=== PATIENT | female | born 1990 | race Caucasian/White ===

== ENCOUNTER 2016-09-29 17:39 | Emergency (ER) | payer SELFPAY ==
[2016-09-29] MEDS ORDERED: Sodium Chloride 0.9% 10 ML Syringe FLUSH PRN ×2 (18:13→18:28)
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
[2016-09-29 18:21] VITALS: BP 135/90
[2016-09-29] MEDS ORDERED: Iopamidol 612 MG/ML 150 ML Bottle IVPUSH ONE (18:28)
--- NOTE | 2016-09-30 07:43 | CT ---
CT neck Technique: Multiple axial sections were obtained from above the external auditory canals inferiorly through the lung apices. Intravenous contrast was utilized. Comparison: No previous neck exam is available. Findings: The parotid and submandibular salivary glands are within normal limits. Multiple scattered lymph nodes within the neck are seen which measure within normal limits and are felt to be incidental. No focal edema is identified. No neck mass is identified. Bone window settings were reviewed which show no discrete bony abnormality. Mild mucosal thickening is identified within both maxillary sinuses believed to be chronic. Impression: 1. Mild mucosal thickening within the maxillary sinuses which is felt to be chronic. 2. CT study of the neck is otherwise unremarkable. Nothing acute is appreciated. Diagnostic code #2 I agree with preliminary report issued by [employer] (preliminary report dictated on 09/29/16, 8:30 PM Central Time)
--- NOTE | 2016-09-30 08:22 | CT ---
CT facial bones Technique: Multiple axial sections were obtained through the facial bones. Reconstructed sagittal and coronal images were reviewed. Comparison: Previous facial bone CT exam of 12/06/14. Findings: Mucosal thickening seen within the ethmoid sinuses, sphenoid and maxillary sinuses. This appears to be chronic. No facial bone fracture is identified. Right and left globes are symmetric. Impression: 1. Mild areas of mucosal thickening as noted above felt to be due to chronic sinusitis. Findings are fairly stable from prior exam. 2. No acute bony abnormality identified on CT study of the facial bones. Diagnostic code #2 I agree with preliminary report issued by [employer] (preliminary report dictated on 09/29/16, 8:34 PM Central Time)
--- NOTE | 2016-09-30 08:22 | CT ---
CT chest Technique: Multiple axial sections were obtained from above the lung apices inferiorly through the lung bases. Intravenous contrast was utilized. Comparison: Previous chest x-ray performed on 09/23/15, no previous chest CT is available. Findings: Mediastinum and hilar regions show no adenopathy or mass. No pericardial thickening is seen. Lungs are clear. No pulmonary contusion, pleural effusion or pneumothorax is seen. Bone window settings were reviewed which show no discrete rib fracture. Thoracic spine shows no discrete fracture. Sternum appears to be intact on the reconstructed sagittal images. Impression: 1. No abnormality is identified on CT study of the chest. Diagnostic code #1 I agree with preliminary report issued by [employer] (preliminary report dictated on 09/29/16, 8:41 PM Central Time) CT abdomen and pelvis Technique: Multiple axial sections were obtained from above the dome of the diaphragm inferiorly through the pubic symphysis. Intravenous contrast was utilized. No oral contrast has been given. Comparison: No previous abdominal or pelvic imaging. Findings: Liver shows no focal parenchymal abnormality. Spleen appears within normal limits. Adrenal glands show no nodule. Pancreas appears within normal limits. Kidneys show symmetric contrast enhancement without hydronephrosis or mass. Gallbladder shows no calcified gallstones. Aorta shows no aneurysmal dilatation. No retroperitoneal adenopathy or mesenteric abnormalities are seen. No pelvic mass or adenopathy is identified. Free fluid is seen within the cul-de-sac most likely physiologic and due to adnexal cyst rupture. Appendix is seen which appears normal. No bowel dilatation is seen. Delayed images show contrast within the distal ureters and within the bladder. Bone window settings were reviewed which show no discrete lumbar spine abnormality. Impression: 1. Free fluid within the pelvis most likely physiologic representing adnexal cyst rupture. 2. No additional abnormality is seen on CT study of the abdomen and pelvis. Diagnostic code #2 I agree with preliminary report issued by [employer] (preliminary report dictated on 09/29/16, 8:41 PM Central Time)
--- NOTE | 2016-09-30 08:22 | CT ---
Head CT Technique: Multiple axial sections were obtained through the brain. Intravenous contrast was not utilized. Comparison: Previous head CT exam of 12/06/14. Findings: Ventricles along with basal cisterns and sulci over the convexities are within normal limits for the patient's age. No abnormal parenchymal densities are seen. No evidence of intracranial hemorrhage. No midline shift or mass effect is seen. Mucosal thickening seen within the ethmoid sinuses which is felt to be chronic. Mastoid sinuses and middle ear cavities are clear. No acute calvarial abnormality is identified. Impression: 1. Mucosal thickening within the ethmoid sinuses felt to represent chronic sinusitis. 2. No acute intracranial abnormality is identified. No skull fracture is identified. Diagnostic code #2 I agree with preliminary report issued by [employer] (preliminary report dictated on 09/29/16, 8:24 PM Central Time)
== END 2016-09-29 20:12 | disposition home or self-care (01) ==
LOC: JD.ED 17:39
DX: T14.8 Other injury of unspecified body region (principal); Y04.0XXA Assault by unarmed brawl or fight, initial encounter; Z88.2 Allergy status to sulfonamides; Z79.899 Other long term (current) drug therapy; I10 Essential (primary) hypertension; F32.9 Major depressive disorder, single episode, unspecified; E03.9 Hypothyroidism, unspecified; F17.200 Nicotine dependence, unspecified, uncomplicated; R51 Headache; M54.2 Cervicalgia; R07.89 Other chest pain; R10.9 Unspecified abdominal pain; M54.9 Dorsalgia, unspecified; R68.84 Jaw pain
CPT/HCPCS: 36415; 70450; 70486; 70491; 71260; 74177; 80053; 81001; 83690; 85025; 99284; G0480; J7050; Q9967

== ENCOUNTER 2017-05-07 12:18 | Emergency (ER) | payer SELFPAY ==
[2017-05-07 12:30] VITALS: BP 150/113
[2017-05-07] MEDS ORDERED: Sodium Chloride 0.9% 10 ML Syringe FLUSH PRN (12:45)
[2017-05-07] MEDS ORDERED: Dicyclomine 10 MG Cap PO ONE (12:46)
[2017-05-07] MEDS ORDERED: Ketorolac 30 MG/ML SDV IVPUSH ONE (12:46)
[2017-05-07] MEDS ORDERED: Sodium Chloride 0.9% 1,000 ML IV ONE (12:46)
--- NOTE | 2017-05-07 13:11 | EDM.PDOC ---
ED HPI GENERAL MEDICAL PROBLEM - General Chief Complaint: Abdominal Pain Stated Complaint: ABDOMINAL PAIN Time Seen by Provider: 05/07/17 12:25 Source of Information: Reports: Patient History Limitations: Reports: No Limitations - History of Present Illness INITIAL COMMENTS - FREE TEXT/NARRATIVE: 26-year-old female presents for evaluation treatment of abdominal discomfort and diarrhea. She reports she's had these symptoms for the last month. Describes the abdominal pain is involving her entire abdomen and describes as a constant pain. Reports is made worse by eating. She reports in particular spicy foods and tomatoes seem to make the abdominal pain worse. She reports she is having diarrhea, up to 10 episodes today. She's had 4 episodes today so far. She has appreciated bright red blood in her stool. No foul odor from the stools or mucus-like stools. She denies any associated fevers, nausea or vomiting. Patient reports she's never had any history of like this. She does have family history of Crohn's disease and diverticulitis. Patient reports she relocated to [place] about 2 months ago. She has just returned [place] about 2 days ago. She denies any recent antibiotic usage. Reports her last menstrual period Was about 3 weeks ago. Duration: Week(s): (4) Middle Abdominal Pain Score (Numeric/FACES): 8 - Related Data Allergies Allergy/AdvReac Type Severity Reaction Status Date / Time Sulfa (Sulfonamide Allergy Intermediate Dizziness Verified 05/07/17 12:30 Antibiotics) Home Meds: Home Meds Ferrous Sulfate [Iron] 975 mg PO DAILY 09/29/16 [History] Zolpidem Tartrate [Ambien] 5 mg PO BEDTIME 09/29/16 [History] Dicyclomine [Bentyl] 20 mg PO TID PRN #20 tab 05/07/17 [Rx] Lisinopril/Hydrochlorothiazide [Lisinopril-Hctz 20-12.5 mg Tab] 1 tab PO BID [History] Past Medical History - Past Health History Medical/Surgical History: Denies Medical/Surgical History Cardiovascular History: Reports: Hypertension 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: Neurological History: Reports: Head Trauma Psychiatric History: Reports: Anxiety Endocrine/Metabolic History: Reports: Hypothyroidism Hematologic History: Reports: Anemia - Past Surgical History Female Surgical History: Reports: Section Social & Family History - Family History Cardiac: Reports: Hypertension Neurological: Reports: CVA Endocrine/Metabolic: Reports: Diabetes, type II - Tobacco Use Smoking Status *Q: Current Every Day Smoker Years of Tobacco use: 13 Packs/Tins Daily: 0.5 Used Tobacco, but Quit: No - Caffeine Use Caffeine Use: Reports: None - Alcohol Use Days Per Week of Alcohol Use: 0 Number of Drinks Per Day: 3 Total Drinks Per Week: 0 - Recreational Drug Use Recreational Drug Use: No Drug Use in Last 12 Months: No Recreational Drug Type: Reports: Marijuana/Hashish - Living Situation & Occupation Living situation: Reports: , with Family Occupation: Employed ED ROS GENERAL - Review of Systems Review Of Systems: See Below Constitutional: Denies: Fever Cardiovascular: Denies: Chest Pain GI/Abdominal: Reports: Abdominal Pain, Bloody Stool, Diarrhea. Denies: Melena, Nausea, Vomiting : Denies: Dysuria Neurological: Reports: Headache ED EXAM, GI/ABD - Physical Exam Exam: See Below Exam Limited By: No Limitations General Appearance: Alert, WD/WN, No Apparent Distress Throat/Mouth: Normal Inspection, Normal Voice, No Airway Compromise Respiratory/Chest: No Respiratory Distress, Lungs Clear, Normal Breath Sounds Cardiovascular: Normal Peripheral Pulses, Regular Rate, Rhythm, No Murmur GI/Abdominal Exam: Normal Bowel Sounds, Soft, Non-Tender. No: Distended, Guarding, Rigid, Rebound Neurological: Alert, Oriented, Normal Cognition Psychiatric: Normal Affect, Normal Mood Skin Exam: Warm, Dry, Normal Color Course - Vital Signs Last Recorded V/S: Last Vital Signs Temp 36.5 C 05/07/17 12:23 Pulse 96 05/07/17 12:23 Resp 16 05/07/17 12:23 BP 150/113 H 05/07/17 12:23 Pulse Ox 100 05/07/17 12:23 - Orders/Labs/Meds Labs: Laboratory Tests 05/07/17 05/07/17 05/07/17 Range/Units 12:50 12:50 12:50 WBC 7.89 (3.98-10.04) K/mm3 RBC 4.60 (3.98-5.22) M/mm3 Hgb 9.9 L (11.2-15.7) gm/L Hct 33.3 L (34.1-44.9) % MCV 72.4 L (79.4-94.8) fl MCH 21.5 L (25.6-32.2) pg MCHC 29.7 L (32.2-35.5) g/dl RDW Std Deviation 49.0 H (36.4-46.3) fL Plt Count 293 (182-369) K/mm3 MPV 11.5 (9.4-12.3) fl Neutrophils % (Manual) 70 H (40-60) % Band Neutrophils % 1 (0-10) % Lymphocytes % (Manual) 20 (20-40) % Atypical Lymphs % 2 % Monocytes % (Manual) 6 (2-10) % Eosinophils % (Manual) 1 (0.7-5.8) % Basophils % (Manual) 0 L (0.1-1.2) Platelet Estimate Adequate Plt Morphology Comment Normal Hypochromasia 2+ moderate Anisocytosis 1+ slight Microcytosis 2+ moderate Target Cells Few Ovalocytes Few Stomatocytes Few Schistocytes Few RBC Morph Comment Not Reportable Sodium 143 (136-145) mEq/L Potassium 3.6 (3.5-5.1) mEq/L Chloride 107 (98-107) mEq/L Carbon Dioxide 24 (21-32) mEq/L Anion Gap 15.6 H (5-15) BUN 8 (7-18) mg/dL Creatinine 0.9 (0.55-1.02) mg/dL Est Cr Clr Drug Dosing 74.26 mL/min Estimated GFR (MDRD) > 60 (>60) mL/min BUN/Creatinine Ratio 8.9 L (14-18) Glucose 106 (74-106) mg/dL Calcium 8.5 (8.5-10.1) mg/dL Magnesium 1.5 L (1.8-2.4) mg/dl Total Bilirubin 0.1 L (0.2-1.0) mg/dL AST 15 (15-37) U/L ALT 20 (14-59) U/L Alkaline Phosphatase 79 (46-116) U/L C-Reactive Protein < 0.2 (<1.0) mg/dL Total Protein 6.4 (6.4-8.2) g/dl Albumin 3.3 L (3.4-5.0) g/dl Globulin 3.1 gm/dL Albumin/Globulin Ratio 1.1 (1-2) HCG, Qual Negative (NEGATIVE) Meds: Medications Discontinued Medications Generic Name Dose Route Start Last Admin Trade Name Freq PRN Reason Stop Dose Admin Dicyclomine HCl 20 mg 05/07/17 12:46 05/07/17 13:00 Bentyl PO 05/07/17 12:47 20 mg ONETIME ONE Administration Sodium Chloride 1,000 mls @ 999 mls/hr 05/07/17 12:46 05/07/17 13:01 Normal Saline IV 05/07/17 13:46 999 mls/hr ONETIME ONE Administration Magnesium Sulfate 2 gm/ Premix 50 mls @ 50 mls/hr 05/07/17 13:38 05/07/17 13: 56 IV 05/07/17 14:37 50 mls/hr ONETIME ONE Administration Ketorolac Tromethamine 30 mg 05/07/17 12:46 05/07/17 13:00 Toradol IVPUSH 05/07/17 12:47 30 mg ONETIME ONE Administration Sodium Chloride 10 ml 05/07/17 12:45 05/07/17 12:52 Saline Flush FLUSH 10 ml ASDIRECTED PRN Administration Keep Vein Open - Radiology Interpretation Free Text/Narrative:: KUB impression per Dr. Dennison: 1. Incidental findings. Nothing acute is seen. - Re-Assessments/Exams Free Text/Narrative Re-Assessment/Exam: 05/07/17 13:51 I reviewed the labs and x-ray results patient. She reports that she had a little bit of improvement with the Toradol and Bentyl. She has a little bit of a headache now. Will give her some magnesium IV and give her the rest of fluids. Plan is currently to discharge her home today with follow-up with her primary care provider. 05/07/17 14:27 Headache is improving. Has approximately half an hour left of her magnesium and fluids. Plan will be to discharge her home after fluids. She has been unable to give us a stool sample while in the ER. May send supplies home if she is not able to give us a sample here. Departure - Departure Time of Disposition: 14:45 Disposition: Home, Self-Care 01 Condition: Fair Clinical Impression: Abdominal pain, Diarrhea - Discharge Information Prescriptions: Dicyclomine [Bentyl] 20 mg PO TID PRN #20 tab PRN Reason: Abdominal Pain Instructions: Abdominal Pain, Adult, [id number], Diarrhea, Adult, Easy-to- Read Referrals: PCP,None [Primary Care Provider] - Vicky Peralta NP [Ordering Only Provider] - Forms: ED Department Discharge Additional Instructions: bentyl 1 tab tid prn abdominal cramping and pain. Recommend starting an [id number] probiotic.. Recommend plenty of clear fluids and a bland diet. [place] diet recommendations include bread, rice, applesauce, toast, bananas, egg whites, soup broth, etc. May advance to a more normal diet as tolerated. Follow up with your primary care provider within one week for recheck of your symptoms. you may need further investigation such as a colonoscopy to rule out other underlying etiologies of your abdominal pain and diarrhea. Please return to the ER if your symptoms change or worsen.
[2017-05-07] MEDS ORDERED: Magnesium Sulfate/Water 2 GM in Premix Bag 1 BAG IV ONE (13:38)
--- NOTE | 2017-05-07 15:16 | CR ---
Abdomen: Supine view of the abdomen was obtained. Comparison: No prior abdominal x-ray. Bowel gas pattern appears normal. Calcification or bone island is seen overlying or within the right iliac bone. Phlebolith is seen within the pelvis. No abnormal calcifications or soft tissue abnormality is seen. Impression: 1. Incidental findings. Nothing acute is seen. Diagnostic code #2
== END 2017-05-07 15:00 | disposition home or self-care (01) ==
LOC: JD.ED 12:18
DX: R10.9 Unspecified abdominal pain (principal); R19.7 Diarrhea, unspecified; F17.210 Nicotine dependence, cigarettes, uncomplicated; I10 Essential (primary) hypertension; E03.9 Hypothyroidism, unspecified; Z79.899 Other long term (current) drug therapy; Z88.2 Allergy status to sulfonamides
CPT/HCPCS: 36415; 74000; 80053; 83735; 84703; 85025; 86140; 96361; 96365; 96375; 99284; A9270; J1885; J7040; J7050; J3475